=== PATIENT | female | born 1975 | race Caucasian/White ===

== ENCOUNTER 2018-02-03 12:19 | Emergency (ER) | payer MEDICAID ==
[~2018-02-03] VITALS: Ht 162.6 cm; Wt 81.6 kg
[2018-02-03 12:24] VITALS: BP 133/67
[2018-02-03] MEDS: LIDOCAINE 1% 500 MG/50 ML VIAL INJ SCH (13:04)
[2018-02-03] MEDS: BACITRACIN OINT 500 UNITS/GM PKT TP ONE (13:14)
[2018-02-03] MEDS: IBUPROFEN 800 MG TAB PO ONE (13:15)
[2018-02-03 13:24] VITALS: BP 123/73
== END 2018-02-03 13:24 | disposition home or self-care (01) ==
LOC: MED 12:19
DX: N61.1 Abscess of the breast and nipple (principal); I10 Essential (primary) hypertension
CPT/HCPCS: 10060; 81002; 81025; 99283; J2001

== ENCOUNTER 2018-02-05 15:03 | Emergency (ER) | payer MEDICAID ==
[~2018-02-05] VITALS: Ht 162.6 cm; Wt 82.6 kg
[2018-02-05 15:08] VITALS: BP 148/81
--- NOTE | 2018-02-05 15:15 | NUR ---
43YO F BIB ASELF FOR WOUND CHECK. PT HAD I AND D X2 DAYS AGO. APPEARS TO BE HEALING WELL, NO DRAINAGE, MILD REDNESS. PT STATES MILD PAIN AT THIS TIME. 05/26. RR EVEN AND UNLABORED. LS CLEAR THROUGHOUT. ABD SOFT AND NON TENDER. ER MD MADE AWARE.
--- NOTE | 2018-02-05 15:50 | NUR ---
PA AT BEDSIDE FOR PT EVALUATION
--- NOTE | 2018-02-05 16:09 | NUR ---
EMT AT BEDSIDE
[2018-02-05 16:12] VITALS: BP 139/75
--- NOTE | 2018-02-05 16:12 | NUR ---
Patient discharged with v/s stable. Written and verbal after care instructions given and explained. Patient verbalized understanding. Ambulatory with steady gait. All questions addressed prior to discharge. Advised to follow up with PMD.
== END 2018-02-05 16:12 | disposition home or self-care (01) ==
LOC: MED 15:03
DX: Z48.01 Encounter for change or removal of surgical wound dressing (principal); I10 Essential (primary) hypertension
CPT/HCPCS: 99282; 99283

== ENCOUNTER 2018-02-24 16:43 | Emergency (ER) | payer MEDICAID ==
[~2018-02-24] VITALS: Ht 162.6 cm; Wt 82.2 kg
[2018-02-24 17:00] VITALS: BP 127/66
--- NOTE | 2018-02-24 17:02 | NUR ---
PT AMBULATES BACK TO THE LOBBY
--- NOTE | 2018-02-24 17:26 | NUR ---
OBTAINING URINE FROM PATIENT IN THE LOBBY. PATIENT AWAKE /ALERT ORIENTED.AMB. W/O DIFFICULTY
--- NOTE | 2018-02-24 17:36 | NUR ---
PT AMBULATES TO BED 2
--- NOTE | 2018-02-24 17:40 | NUR ---
43Y/F BIB SELF C/O OPEN WOUND FROM ABSCESS ON HER UPPER RT QUAD; WAS SEEN ON 02/03/2018/ AND RECHECK ON 02/05/2018. PT STATES RUQ HURTS WHEN SHE PUT HER BRA ON. PT IS AAOX4, VSS, BEDRAIL UP X 1, ER MD AWARE AND NOTIFIED OF PT STATUS. HX; HTN RX; DENIES
[2018-02-24] MEDS ORDERED: NEOMYCIN/POLYMYXIN/BACITRACIN 0.9 GM/1 PKT TP ONE (18:25)
[2018-02-24 18:45] VITALS: BP 127/66
--- NOTE | 2018-02-24 18:46 | NUR ---
Patient discharged with v/s stable. Written and verbal after care instructions given and explained. Patient alert, oriented and verbalized understanding of instructions. Ambulatory with steady gait. All questions addressed prior to discharge. ID band removed. Patient advised to follow up with PMD. Rx of MUPIROCIN TOPICAL CREAM given. Patient educated on indication of medication including possible reaction and side effects. Opportunity to ask questions provided and answered.
== END 2018-02-24 18:46 | disposition home or self-care (01) ==
LOC: MED 16:43
DX: L03.311 Cellulitis of abdominal wall (principal); I10 Essential (primary) hypertension
CPT/HCPCS: 81002; 81025; 99283

== ENCOUNTER 2018-07-01 19:26 | Emergency (ER) | payer MEDICAID ==
[~2018-07-01] VITALS: Ht 162.6 cm; Wt 81.6 kg
[2018-07-01 19:43] VITALS: BP 109/59
--- NOTE | 2018-07-01 19:46 | NUR ---
PT AMBULATORY TO ER LOBBY W/ STEADY GAIT IN STABLE CONDITION.
--- NOTE | 2018-07-01 20:57 | NUR ---
PT TAKEN TO BED 2
--- NOTE | 2018-07-01 21:19 | NUR ---
PT TO ED WITH C/O L GROIN REDNESS AND PAIN X 3 WEEKS. PT DENIES ANY DRAINAGE AT THIS TIME. SITE IS WARM AND PAINFUL TO TOUCH. PT PLACED INTO BED, PENDING MD PRIETO.
[2018-07-01 21:35] VITALS: BP 109/59
--- NOTE | 2018-07-01 21:35 | NUR ---
Patient discharged with v/s stable. Written and verbal after care instructions given and explained. Patient alert, oriented and verbalized understanding of instructions. Ambulatory with steady gait. All questions addressed prior to discharge. ID band removed. Patient advised to follow up with PMD. Rx of BACTRIM, KEFLEX, AND NYSTATIN given. Patient educated on indication of medication including possible reaction and side effects. Opportunity to ask questions provided and answered.
== END 2018-07-01 21:35 | disposition home or self-care (01) ==
LOC: MED 19:26
DX: L73.9 Follicular disorder, unspecified (principal); B36.9 Superficial mycosis, unspecified; I10 Essential (primary) hypertension
CPT/HCPCS: 99283

== ENCOUNTER 2019-12-05 14:23 | Emergency (ER) | payer MEDICAID ==
[~2019-12-05] VITALS: Ht 152.4 cm; Wt 83.5 kg
[2019-12-05 14:30] VITALS: BP 152/90
--- NOTE | 2019-12-05 14:40 | NUR ---
PT C/O GENERALIZED WEAKNESS AND DIZZINESS FOR 4 DAYS. DENIES BEDOLLA, N/V/D, FEVER, COUGH, SOB, OR ABDOMINAL PAIN. PT HAS HX OF ANEMIA AND LAST BLOOD WORK DONE WAS 2 MONS AGO WITH HGB 8. LMP WAS ONE WEEK AGO THAT LASTED 4 DAYS WITH NORMAL BLEEDING. SKIN IS PINK/WARM/DRY; PT PRESENTS WITH AAOX4, TACHYCARDIA, AND AMBULATES WITH EVEN AND STEADY GAIT; PT DENIES ANY FEVER, CP, SOB, OR COUGH AT THIS TIME; PATIENT STATES PAIN OF 0/10 AT THIS TIME; VSS; PATIENT POSITIONED FOR COMFORT; HOB ELEVATED; BEDRAILS UP X2; BED DOWN. ER MD MADE AWARE OF PT STATUS.
[2019-12-05 15:19] LABS: BASOPHILS % (AUTO) 0.4 % (0.0-2.0); HEMATOCRIT 30.6 % (36-48); LYMPHOCYTES # (AUTO) 1.4 K/uL (2.5-16.5); MONOCYTES # (AUTO) 0.5 K/uL (0.8-1.0); WHITE BLOOD COUNT (AUTO) 6.6 K/uL (4.8-10.8)
[2019-12-05] MEDS ORDERED: NACL 0.9% 1,000 ML IV ONE (15:35)
[2019-12-05 15:43] LABS: ALBUMIN 3.6 g/dL (3.4-5.0); ANION GAP 10.9 (8-16); CARBON DIOXIDE 27.4 mmol/L (21-32); CREATININE 0.7 mg/dL (0.6-1.3); POTASSIUM 3.3 mmol/L (3.5-5.1); TOTAL BILIRUBIN 0.2 mg/dL (0.0-1.0)
[2019-12-05 15:50] LABS: EOSINOPHILS % (AUTO) 0.3 % (0.0-4.0); HEMOGLOBIN 9.4 g/dL (12.0-16.0); LYMPHOCYTES % (AUTO) 21.5 % (20.5-51.1); MEAN CORPUSCULAR HEMOGLOBIN 21 pg (27-31); MEAN CORPUSCULAR HGB CONC 31 g/dL (33-37); MEAN CORPUSCULAR VOLUME 66.9 fL (80-94); MONOCYTES % (AUTO) 7.3 % (1.7-9.3); NEUTROPHILS # (AUTO) 4.7 K/uL (1.8-7.7); NEUTROPHILS % (AUTO) 70.5 % (42.2-75.2); PLATELET COUNT (AUTO) 347 K/uL (140-450); RED BLOOD CELL COUNT(AUTO) 4.58 MIL/uL (4.20-5.40); RED CELL DISTRIBUTION WIDTH 21.4 % (11.6-13.7)
[2019-12-05] MEDS ORDERED: POTASSIUM CHLORIDE 10 MEQ TABER PO ONE (15:55)
[2019-12-05 16:20] LABS: BARBITURATE, URINE NEGATIVE ng/ml (NEG <=200); BENZODIAZEPINE, URINE NEGATIVE ng/mL (NEG <=200); CANNABINOID, URINE NEGATIVE ng/mL (NEG <=50); COCAINE, URINE NEGATIVE ng/mL (NEG <=300); OPIATE, URINE NEGATIVE ng/mL (NEG <=2000); PHENCYCLIDINE SCREEN,URINE NEGATIVE ng/mL (NEG <=25)
[2019-12-05 17:09] VITALS: BP 137/80
--- NOTE | 2019-12-05 17:09 | NUR ---
Patient discharged with v/s stable. Written and verbal after care instructions given and explained. Patient alert, oriented and verbalized understanding of instructions. Ambulatory with to car. All questions addressed prior to discharge. ID band removed. Patient advised to follow up with PMD. Rx of FEOSOL given. Patient educated on indication of medication including possible reaction and side effects. Opportunity to ask questions provided and answered.
== END 2019-12-05 17:09 | disposition home or self-care (01) ==
LOC: MED 14:23
DX: D64.9 Anemia, unspecified (principal); R53.1 Weakness; I10 Essential (primary) hypertension
CPT/HCPCS: 36415; 80053; 80305; 81002; 81025; 84484; 85025; 93005; 96360; 99284; J7030